=== PATIENT | female | born 1965 | race Caucasian/White ===

== ENCOUNTER 2017-02-12 10:14 | Emergency (ER) | payer SELFPAY ==
[~2017-02-12] VITALS: Ht 154.9 cm; Wt 86.2 kg
[~2017-02-12 10:14] MED LIST: ASPI81CT89 PO; ATI.5 PO; FLUO-387 PO; HYDR-3623 PO; METF500T PO; RANI150T8 PO
[2017-02-12 10:20] VITALS: BP 143/88
--- NOTE | 2017-02-12 12:08 | NUR ---
Patient discharged with v/s stable. Written and verbal after care instructions given and explained. Patient verbalized understanding. Ambulatory with steady gait. All questions addressed prior to discharge. Advised to follow up with PMD.
[2017-02-12 12:12] VITALS: BP 143/88
== END 2017-02-12 12:08 | disposition home or self-care (01) ==
LOC: MED 10:14
DX: H91.93 Unspecified hearing loss, bilateral (principal); E11.9 Type 2 diabetes mellitus without complications; K21.9 Gastro-esophageal reflux disease without esophagitis; I10 Essential (primary) hypertension; F17.210 Nicotine dependence, cigarettes, uncomplicated; Z88.1 Allergy status to other antibiotic agents; Z79.84 Long term (current) use of oral hypoglycemic drugs; Z79.899 Other long term (current) drug therapy; Z79.82 Long term (current) use of aspirin; Z90.49 Acquired absence of other specified parts of digestive tract
CPT/HCPCS: 99281

== ENCOUNTER 2017-08-18 18:42 | Emergency (ER) | payer OTHER ==
[~2017-08-18] VITALS: Ht 165.1 cm; Wt 87.3 kg
[2017-08-18 19:00] VITALS: BP 151/82
--- NOTE | 2017-08-18 19:23 | NUR ---
52 Y/O F W/C/O PAIN TO R EYE/ R LIP CORNER R/T SMALL BLISTERS, AND FEVER X 4 DAYS. MED HX DM, HTN, PARTIAL thyroidectomy, and cholecystectomy. No other s/s of distress noted at the moment. Er md made aware.
[2017-08-18] MEDS ORDERED: TETRACAINE HCL/PF 0.5% OPTH 4 ML BTL OP ONE (19:55)
[2017-08-18] MEDS ORDERED: FLUORESCEIN OPTH STRIP 0.6 MG OP ONE (19:55)
[2017-08-18] MEDS ORDERED: KETOROLAC 30 MG/ML VIAL IM ONE (20:30)
[2017-08-18] MEDS ORDERED: ACETAMINOPHEN/CODEINE 300/30MG 1 TAB PO ONE (20:30)
[2017-08-18 21:02] VITALS: BP 132/75
--- NOTE | 2017-08-18 21:02 | NUR ---
Patient discharged with v/s stable. Written and verbal after care instructions given and explained. Patient alert, oriented and verbalized understanding of instructions. Ambulatory with steady gait. All questions addressed prior to discharge. ID band removed. Patient advised to follow up with PMD. Rx of ACETAMINOPHEN, ACYCLOVIR,LISINOPRIL, AND TOBRAMYCIN given. Patient educated on indication of medication including possible reaction and side effects. Opportunity to ask questions provided and answered.
== END 2017-08-18 21:02 | disposition home or self-care (01) ==
LOC: MED 18:42
DX: B00.9 Herpesviral infection, unspecified (principal); H00.011 Hordeolum externum right upper eyelid; I10 Essential (primary) hypertension; E11.9 Type 2 diabetes mellitus without complications; K21.9 Gastro-esophageal reflux disease without esophagitis; Z76.0 Encounter for issue of repeat prescription; Z90.49 Acquired absence of other specified parts of digestive tract; Z79.84 Long term (current) use of oral hypoglycemic drugs; Z79.899 Other long term (current) drug therapy; Z88.1 Allergy status to other antibiotic agents; Z79.82 Long term (current) use of aspirin
CPT/HCPCS: 96372; 99284; J1885

== ENCOUNTER 2018-01-20 17:17 | Emergency (ER) | payer OTHER ==
[~2018-01-20] VITALS: Ht 160 cm; Wt 83.9 kg
[2018-01-20 17:22] VITALS: BP 146/57
--- NOTE | 2018-01-20 17:22 | NUR ---
PT WHEELED TO BED 11, PT IN NO APPEARENT DISTRESS
--- NOTE | 2018-01-20 17:22 | NUR ---
52YO F BIB SELF W/C/O CP X10 MIN, L SIDE CP RADIATING TO R SHOULDER . PT STATES PALPATIONS WITH N/V. SKIN DRY WARM. PT IS AAOX4, VVS, BED DOWN, BEDRAIL UP X 1, ER MD AWARE AND NOTIFIED OF PT STATUS. HX: DM HTN, DEPRESSION, AND ANXIETY. MEDS: PROZAC , METFORMIN, LISINOPRIL
--- NOTE | 2018-01-20 17:23 | NUR ---
EMT AT BEDSIDE FOR EKG
[2018-01-20] MEDS ORDERED: LORazepam 2 MG/ML VIAL IVP ONE (18:15)
[2018-01-20 18:36] LABS: BASOPHILS # (AUTO) 0.1 K/uL (0.00-0.22); BASOPHILS % (AUTO) 0.5 % (0.0-2.0); EOSINOPHILS # (AUTO) 0.3 K/uL (0-0.4); EOSINOPHILS % (AUTO) 2.2 % (0.0-4.0); HEMATOCRIT 38.5 % (36-48); HEMOGLOBIN 12.5 g/dL (12.0-16.0); MEAN CORPUSCULAR HEMOGLOBIN 29 pg (27-31); MEAN CORPUSCULAR HGB CONC 33 g/dL (33-37); MEAN CORPUSCULAR VOLUME 88.7 fL (80-94); MONOCYTES # (AUTO) 0.7 K/uL (0.8-1.0); NEUTROPHILS # (AUTO) 7.8 K/uL (1.8-7.7); NEUTROPHILS % (AUTO) 66.3 % (42.2-75.2); PLATELET COUNT (AUTO) 278 K/uL (140-450); RED BLOOD CELL COUNT(AUTO) 4.34 MIL/uL (4.20-5.40); RED CELL DISTRIBUTION WIDTH 12.9 % (11.6-13.7); WHITE BLOOD COUNT (AUTO) 11.8 K/uL (4.8-10.8)
[2018-01-20 18:47] LABS: ANION GAP 10.6 (8-16); CARBON DIOXIDE 28.4 mmol/L (21-32); CREATININE 0.9 mg/dL (0.6-1.3)
[2018-01-20 18:52] LABS: ALBUMIN 3.7 g/dL (3.4-5.0); TOTAL BILIRUBIN 0.2 mg/dL (0.0-1.0)
[2018-01-20 18:55] LABS: PROTHROMBIN TIME 10.4 secs (10.8-13.4)
--- NOTE | 2018-01-20 19:11 | NUR ---
Got report from Teri MEHTA. Patient laying in bed, VSS, had R arm pain 6/. ER MD informed. Will continue to monitor
[2018-01-20] MEDS ORDERED: ASPIRIN 325 MG TAB PO ONE (20:25)
--- NOTE | 2018-01-20 22:45 | NUR ---
JOHANA HUERTAS SPOKE WITH PT. VORA
--- NOTE | 2018-01-20 23:00 | NUR ---
Patient to be transferred to [facility]. Is being transferred due to INSURANCE FOR OBSERVATION. Receiving facility has accepting physician and available space. ER physician has signed transfer form. Patient or responsible democrat has agreed to transfer and signed form. Patient belongings inventoried and will be sent with patient. Copy of nursing notes, lab reports, EKG, Physicians Orders and X-rays to be sent with patient. Report called RN at receiving facility. [facility] ambulance service has been called for transfer. ETA is 1 HOUR.
[2018-01-20 23:30] VITALS: BP 162/57
--- NOTE | 2018-01-20 23:49 | NUR ---
GAVE REPORT TO ZULAY MEHTA AT [facility]
--- NOTE | 2018-01-20 23:50 | NUR ---
Patient Tranfers to outside Facility, [facility] IN ROUTE ETA WITHIN THE HOUR Physician: MICHELA Location: [facility]
== END 2018-01-20 23:30 | disposition short-term general hospital (02) ==
LOC: MED 17:17
DX: F48.9 Nonpsychotic mental disorder, unspecified (principal); R07.89 Other chest pain; R00.2 Palpitations; E11.9 Type 2 diabetes mellitus without complications; K21.9 Gastro-esophageal reflux disease without esophagitis; I10 Essential (primary) hypertension; F41.9 Anxiety disorder, unspecified; F32.9 Major depressive disorder, single episode, unspecified; Z79.82 Long term (current) use of aspirin; Z79.899 Other long term (current) drug therapy; Z90.89 Acquired absence of other organs; Z79.84 Long term (current) use of oral hypoglycemic drugs
CPT/HCPCS: 36415; 71045; 80053; 82550; 83880; 84484; 85025; 85379; 85610; 85730; 93005; 96374; 99291; J2060; Q0092

== ENCOUNTER 2018-07-15 10:38 | Emergency (ER) | payer OTHER ==
[~2018-07-15] VITALS: Ht 162.6 cm; Wt 84.5 kg
[~2018-07-15 10:38] MED LIST changes: +ASPI-1821 PO; -ASPI81CT89 PO
[2018-07-15 10:40] VITALS: BP 127/69
--- NOTE | 2018-07-15 10:51 | NUR ---
PATIENT AMBULATED TO BED 7.
--- NOTE | 2018-07-15 11:05 | NUR ---
C/O ABD PAIN 10/10 ACHING/CRAMPING X4 QUADRANTS FOR 2 DAYS. PT REPORTS N/V/D, & BLURRY VISION. PT DENIES FEVER. ABD IS SOFT, FLAT AND TENDER TO PALPATION. BOWEL SOUNDS ACTIVE X4, LBM TODAY WITH DIARRHEA. PT LAST ATE THIS MORNING.
--- NOTE | 2018-07-15 11:20 | NUR ---
GAVE PT URINE CUP AND WATER, OKAYED BY ERMD
--- NOTE | 2018-07-15 11:38 | NUR ---
DR. MORGAN AT BEDSIDE EVALUATING PATIENT,
[2018-07-15] MEDS ORDERED: KETOROLAC 60 MG/2 ML VIAL IM ONE (11:40)
[2018-07-15 12:00] VITALS: BP 130/72
--- NOTE | 2018-07-15 12:01 | NUR ---
Patient discharged with v/s stable. Written and verbal after care instructions given and explained. Patient alert, oriented and verbalized understanding of instructions. Ambulatory with steady gait. All questions addressed prior to discharge. ID band removed. Patient advised to follow up with PMD. Rx of IMMODIUM, ZOFRAN, IBUPROFEN,CIPRO given. Patient educated on indication of medication including possible reaction and side effects. Opportunity to ask questions provided and answered.
== END 2018-07-15 12:01 | disposition home or self-care (01) ==
LOC: MED 10:38
DX: N39.0 Urinary tract infection, site not specified (principal); R11.2 Nausea with vomiting, unspecified; R19.7 Diarrhea, unspecified; E11.9 Type 2 diabetes mellitus without complications; K21.9 Gastro-esophageal reflux disease without esophagitis; F17.200 Nicotine dependence, unspecified, uncomplicated; Z90.49 Acquired absence of other specified parts of digestive tract; Z79.82 Long term (current) use of aspirin; Z79.899 Other long term (current) drug therapy
CPT/HCPCS: 81002; 96372; 99283; J1885

== ENCOUNTER 2018-12-25 09:55 | Emergency (ER) | payer OTHER ==
[~2018-12-25] VITALS: Ht 160 cm; Wt 75.7 kg
[2018-12-25 09:59] VITALS: BP 119/75
--- NOTE | 2018-12-25 10:03 | NUR ---
Patient ambulated to bed 1. RN evaluating patient at bedside.
--- NOTE | 2018-12-25 10:05 | NUR ---
C/O L 1ST TOE PAIN X2 WEEKS. PT STATES SHE HAD A PEDICURE DONE AND NOW HER TOE IS IN PAIN, 8/10. SITE IS RED AND SWOLLEN. CAP REFILL < 3 SECONDS. PT AMBULATES WITH STEADY GAIT. PT STATES PAIN IS WORSENED WITH CLOSED TOES DUE TO THE PRESSURE. PT ALERT AND AWAKE. VSS. BED IS DOWN, LOCKED, BED RAIL X 1, ERMD TO SEE PT. HX:DM, HTN RX: LISINOPRIL, METFORMIN, ZANTAC
--- NOTE | 2018-12-25 10:40 | NUR ---
DR DOWELL AT BEDSIDE
[2018-12-25 11:10] VITALS: BP 123/73
--- NOTE | 2018-12-25 11:10 | NUR ---
Patient discharged with v/s stable. Written and verbal after care instructions given and explained. Patient alert, oriented and verbalized understanding of instructions. Ambulatory with steady gait. All questions addressed prior to discharge. ID band removed. Patient advised to follow up with PMD. Rx of KEFLEX given. Patient educated on indication of medication including possible reaction and side effects. Opportunity to ask questions provided and answered. PT INSTRUCTED THAT SHE CAN USE OTC TYLENOL AND MOTRIN FOR PAIN
== END 2018-12-25 11:10 | disposition home or self-care (01) ==
LOC: MED 09:55
DX: L03.032 Cellulitis of left toe (principal); I10 Essential (primary) hypertension; E11.9 Type 2 diabetes mellitus without complications; K21.9 Gastro-esophageal reflux disease without esophagitis; F17.210 Nicotine dependence, cigarettes, uncomplicated; Z90.49 Acquired absence of other specified parts of digestive tract; Z79.84 Long term (current) use of oral hypoglycemic drugs; Z79.82 Long term (current) use of aspirin; Z79.899 Other long term (current) drug therapy
CPT/HCPCS: 99283

== ENCOUNTER 2020-09-23 20:29 | Emergency (ER) | payer OTHER ==
[~2020-09-23] VITALS: Ht 157.5 cm; Wt 83.9 kg
[2020-09-23 20:34] VITALS: BP 126/50
[2020-09-23] MEDS ORDERED: KETOROLAC 60 MG/2 ML VIAL IM ONE (21:10)
[2020-09-23] MEDS ORDERED: ACET-10509 PO (21:38)
[2020-09-23] MEDS ORDERED: IBUP-2213 PO (21:38)
== END 2020-09-23 21:50 | disposition home or self-care (01) ==
LOC: MED 20:29
DX: M25.561 Pain in right knee (principal); M25.562 Pain in left knee; E11.9 Type 2 diabetes mellitus without complications; K21.9 Gastro-esophageal reflux disease without esophagitis; I10 Essential (primary) hypertension; Z79.84 Long term (current) use of oral hypoglycemic drugs; Z79.899 Other long term (current) drug therapy; Z79.82 Long term (current) use of aspirin
CPT/HCPCS: 73560; 96372; 99283; J1885

== ENCOUNTER 2022-01-02 11:33 | Emergency (ER) | payer OTHER ==
[~2022-01-02] VITALS: Ht 160 cm; Wt 77.1 kg
[~2022-01-02 11:33] MED LIST changes: +ACET-10509 PO; +IBUP-2213 PO; +METF-346 PO; -METF500T PO
[2022-01-02 11:52] VITALS: BP 141/64
--- NOTE | 2022-01-02 12:00 | NUR ---
Pt ambulated to bed 08 with steady/even gait; placed onto property assessment monitor. Unable to void at this time.
--- NOTE | 2022-01-02 12:00 | NUR ---
AccuChek 400; compliant with DM2 medication
--- NOTE | 2022-01-02 12:00 | NUR ---
56 y/o F BIB daughter c/o acute onset vision changse x 2 days. States lost vision to right eye "seeing shadows, unable to see colors." +Nausea, vomiting x 1 episode last night. Denies eye pain/pain. TeleDoc visit RN advised ER evaluation. PMH: DM2, HTN, depression Meds: metformin, ozempic, lisinopril, prozac NKDA
--- NOTE | 2022-01-02 12:01 | NUR ---
Dr. Quezada notified of pt presentation.
--- NOTE | 2022-01-02 12:04 | NUR ---
OD 20/100 OS 20/70 OU 20/100
--- NOTE | 2022-01-02 12:29 | NUR ---
Dr. Quezada evaluating patient at bedside.
[2022-01-02 13:23] LABS: ALBUMIN 3.7 g/dL (3.4-5.0); ANION GAP 16.7 (8-16); CARBON DIOXIDE 25.4 mmol/L (21-32); CREATININE 0.9 mg/dL (0.6-1.3); POTASSIUM 4.1 mmol/L (3.5-5.1); TOTAL BILIRUBIN 0.4 mg/dL (0.0-1.0)
[2022-01-02 13:32] LABS: BASOPHILS # (AUTO) 0.1 K/uL (0.00-0.22); BASOPHILS % (AUTO) 0.6 % (0.0-2.0); EOSINOPHILS # (AUTO) 0.3 K/uL (0-0.4); EOSINOPHILS % (AUTO) 2.8 % (0.0-4.0); HEMATOCRIT 39.7 % (36-48); HEMOGLOBIN 13.2 g/dL (12.0-16.0); LYMPHOCYTES # (AUTO) 2.2 K/uL (2.5-16.5); LYMPHOCYTES % (AUTO) 22.7 % (20.5-51.1); MEAN CORPUSCULAR HEMOGLOBIN 30 pg (27-31); MEAN CORPUSCULAR HGB CONC 33 g/dL (33-37); MONOCYTES # (AUTO) 0.4 K/uL (0.8-1.0); MONOCYTES % (AUTO) 4.6 % (1.7-9.3); NEUTROPHILS # (AUTO) 6.6 K/uL (1.8-7.7); NEUTROPHILS % (AUTO) 69.3 % (42.2-75.2); PLATELET COUNT (AUTO) 331 K/uL (140-450); RED BLOOD CELL COUNT(AUTO) 4.41 MIL/uL (4.20-5.40); RED CELL DISTRIBUTION WIDTH 13.5 % (11.6-13.7); WHITE BLOOD COUNT (AUTO) 9.5 K/uL (4.8-10.8)
--- NOTE | 2022-01-02 13:50 | NUR ---
Dr. Quezada evaluating patient at bedside.
[2022-01-02 14:14] VITALS: BP 144/65
--- NOTE | 2022-01-02 14:14 | NUR ---
Patient discharged with v/s stable. Written and verbal after care instructions given. Patient verbalized understanding. Ambulatory with steady gait. All questions addressed prior to discharge. Advised to follow up with PMD.
== END 2022-01-02 14:14 | disposition home or self-care (01) ==
LOC: MED 11:33
DX: H43.11 Vitreous hemorrhage, right eye (principal)
CPT/HCPCS: 36415; 80053; 85025; 99284

== ENCOUNTER 2023-10-09 07:36 | Emergency (ER) | payer OTHER ==
[~2023-10-09] VITALS: Ht 160 cm; Wt 80.7 kg
[2023-10-09 07:52] VITALS: BP 142/60; PULSE 86; RESP 16; TEMP 98.6; O2SAT 98
[2023-10-09 08:18] LABS: BILIRUBIN,URINE NEGATIVE (NEGATIVE); BLOOD, URINE NEGATIVE (NEGATIVE); COLOR,URINE YELLOW (YELLOW); LEUKOCYTE ESTERASE ,URINE 1+ (NEGATIVE); NITRITE, URINE POSITIVE (NEGATIVE); PROTEIN,URINE TRACE (NEGATIVE); UGLUCOSE 3+ (NEGATIVE); UROBILINOGEN,URINE 0.2 EU/dL (0.2 - 1)
[2023-10-09 08:20] LABS: APPEARANCE,URINE SLIGHTLY HAZY (CLEAR)
[2023-10-09 08:25] LABS: RBC,URINE 0-5 /HPF (0-5)
[2023-10-09 08:26] LABS: BACTERIA,URINE 2+ /HPF (None Seen); SQUAMOUS EPITHELIAL CELL,UR 0-3 (FEW) /LPF (0-3 (FEW))
[2023-10-09 08:28] LABS: BASOPHILS % (AUTO) 0.3 % (0.0-2.0); EOSINOPHILS # (AUTO) 0.2 K/uL (0-0.4); EOSINOPHILS % (AUTO) 2.2 % (0.0-4.0); HEMATOCRIT 40.6 % (36-48); HEMOGLOBIN 13.1 g/dL (12.0-16.0); LYMPHOCYTES % (AUTO) 10.8 % (20.5-51.1); MEAN CORPUSCULAR HEMOGLOBIN 29 pg (27-31); MEAN CORPUSCULAR HGB CONC 32 g/dL (33-37); MEAN CORPUSCULAR VOLUME 88.8 fL (80-94); MONOCYTES # (AUTO) 0.4 K/uL (0.8-1.0); MONOCYTES % (AUTO) 3.9 % (1.7-9.3); NEUTROPHILS # (AUTO) 7.5 K/uL (1.8-7.7); NEUTROPHILS % (AUTO) 82.8 % (42.2-75.2); PLATELET COUNT (AUTO) 289 K/uL (140-450); RED BLOOD CELL COUNT(AUTO) 4.57 MIL/uL (4.20-5.40); RED CELL DISTRIBUTION WIDTH 13.8 % (11.6-13.7); WHITE BLOOD COUNT (AUTO) 9.1 K/uL (4.8-10.8)
[2023-10-09 08:50] LABS: ANION GAP 14.9 (8-16); CALCIUM 9.2 mg/dL (8.5-10.1); CARBON DIOXIDE 27.6 mmol/L (21-32); CREATININE 0.8 mg/dL (0.6-1.3); POTASSIUM 4.5 mmol/L (3.5-5.1)
[2023-10-09] MEDS: ALUMINUM HYD/MAG/SIMETHICONE 30 ML UDC PO ONE (08:53)
[2023-10-09] MEDS: ONDANSETRON 4 MG ODT PO ONE (08:53)
[2023-10-09 08:58] LABS: ALANINE AMINOTRANSFERASE 33 U/L (12-78); ALBUMIN 3.3 g/dL (3.4-5.0); ALKALINE PHOSPHATASE 103 U/L (50-136); ASPARTATE AMINOTRANSFERASE 25 U/L (15-37); BILIRUBIN,DIRECT 0.1 mg/dL (0.0-0.3); LIPASE 61 U/L (16-77); TOTAL BILIRUBIN 0.5 mg/dL (0.0-1.0); TOTAL PROTEIN, SERUM 7.1 g/dL (6.4-8.2)
[2023-10-09] MEDS ORDERED: CEPH-588 PO (09:15)
[2023-10-09] MEDS ORDERED: ONDA-188 SL (09:15)
[2023-10-09] MEDS ORDERED: MAA30 PO (09:15)
== END 2023-10-09 09:30 | disposition home or self-care (01) ==
LOC: MED 07:36
DX: N39.0 Urinary tract infection, site not specified (principal); E11.9 Type 2 diabetes mellitus without complications; K21.9 Gastro-esophageal reflux disease without esophagitis; I10 Essential (primary) hypertension; Z79.899 Other long term (current) drug therapy; Z79.82 Long term (current) use of aspirin
CPT/HCPCS: 36415; 80048; 80076; 81001; 82948; 83690; 84484; 85025; 87086; 87186; 93005; 99284; Q0162